=== PATIENT | male | born 1965 | race Two or more races ===

== ENCOUNTER 2025-05-28 16:27 | Inpatient (IN) | payer MEDICAID, SELFPAY ==
[2025-05-28 16:28] VITALS: BMI 29.2
[2025-05-28 16:35] VITALS: BP 109/69; PULSE 88; RESP 20; TEMP 36.5; O2SAT 97
--- NOTE | 2025-05-28 16:46 | EDRME_ITS ---
Rapid Medical Screening Exam FORMERLY [facility], [facility] Arrival date/time: 05/28/25 16:27 59-year-old male with a history of hypertension presents to the emergency room with a chief complaint of generalized cramping to his upper extremities and lower extremities. Patient states it was his first day back at work today and it was very hot outside. I have greeted and performed a focused initial assessment of this patient. A comprehensive ED assessment and evaluation of the patient, analysis of all test results, and completion of the medical decision making process will be conducted by additional ED providers. Chief Complaint: General Adult/Misc Complain Vital signs: Vital Signs Temperature 97.7 F 05/28/25 16:35 Pulse Rate 88 05/28/25 16:35 Respiratory Rate 20 05/28/25 16:35 Blood Pressure 109/69 05/28/25 16:35 Pulse Oximetry (%) 97 05/28/25 16:35 Oxygen Delivery Method Room Air 05/28/25 16:35 Vital signs reviewed by provider: Yes
[2025-05-28 16:56] LABS: Basophils # (Auto) 0.0 Thou/mm3 (0.0-0.2); Basophils % (Auto) 0 % (0-2.5); Eosinophils # (Auto) 0.0 Thou/mm3 (0.0-0.5); Eosinophils % (Auto) 0 % (0-10); Hematocrit 49.9 % (41.0-53.0); Hemoglobin 17.5 g/dL (13.5-16.0); Immature Granulocytes Auto 0.04 Thou/mm3 (0.00-0.00); Lymphocytes # (Auto) 0.8 Thou/mm3 (1.0-4.8); Lymphocytes % (Auto) 6 % (10-50); Mean Corpuscular HGB Conc 35.1 g/dl (31.0-37.0); Mean Corpuscular Hemoglobin 31.6 pg (25.0-35.0); Mean Corpuscular Volume 90 fL (80-100); Monocytes # (Auto) 0.4 Thou/mm3 (0.0-0.8); Monocytes % (Auto) 3 % (0-12); Neutrophils # (Auto) 11.8 Thou/mm3 (1.8-7.7); Neutrophils % (Auto) 90 % (37-80); Nucleated Red Blood Cell # 0.00 Thou/mm3 (0.00-0.00); Nucleated Red Blood Cell % 0 /100 WBC (0); Platelet Count 262 Thou/mm3 (140-440); RDW Standard Deviation 41.4 fL (35.1-43.9); Red Blood Count 5.54 Miln/mm3 (4.50-5.90); White Blood Count 13.1 Thou/mm3 (3.8-10.6)
[2025-05-28 17:07] LABS: Collection Type, Urine Clean Catch
[2025-05-28 17:12] LABS: Bilirubin,Urine Negative (Negative); Blood,Urine Negative (Negative); Color,Urine Yellow (Lt Yel-Yel); Culture Indicated,Urine Not Indicated; Glucose, Urine Negative (Negative); Ketones,Urine Negative (Negative); Leukocyte Esterase,Urine Negative (Negative); Nitrite,Urine Negative (Negative); PH,Urine 5.5 (5.0-7.0); Protein,Urine Trace (Neg - Trace); RBC,Urine 1 /hpf (0-3); Specific Gravity,Urine 1.029 (1.001-1.035); Squamous Epithelial Cell,Urine < 1 /hpf (0-5); Urobilinogen,Urine Negative mg/dL (0.0-1.0); WBC,Urine 3 /hpf (0-5)
[2025-05-28 17:13] LABS: Clarity,Urine Hazy (Clear/Hazy)
[2025-05-28 17:16] LABS: Alanine Aminotransferase 41 U/L (10-49); Albumin, Serum 5.3 gm/dL (3.4-4.8); Albumin/Globulin Ratio 1.8 (1.2-2.2); Alkaline Phosphatase 96 U/L (46-116); Anion Gap 14 (7-16); Aspartate Amino Transferase 34 U/L (0-34); BUN/Creatinine Ratio 8 Ratio (12-20); Bilirubin,Total 2.2 mg/dL (0.3-1.2); Blood Urea Nitrogen 27 mg/dL (9-23); Calcium 10.2 mg/dL (8.3-10.6); Calcium (Corrected) 10.2 mg/dL (8.5-10.1); Carbon Dioxide 22.1 mMol/L (20.0-31.0); Chloride 99 mMol/L (98-107); Creatine Kinase 290 U/L (34-171); Creatinine (Component) 3.2 mg/dL (0.6-1.3); Estimated Creatinine Clearance 23.0 mL/min (>60); Globulin 2.9 gm/dL (2.3-3.5); Glucose 173 mg/dL (74-106); Osmolality,Calculated 279 (275-295); Potassium 4.3 mMol/L (3.4-5.1); Sodium 135 mMol/L (136-145); Total Protein 8.2 gm/dL (5.7-8.2); eGFR 21 See Note
--- NOTE | 2025-05-28 18:10 | XR_ITS ---
Examination: CT abdomen and pelvis without contrast. Coronal 3-D reconstructions. Sagittal 2-D reconstructions. Date and time of exam:May 28, 2025, 1831 hours INDICATIONS: Bilateral flank pain today, acute renal insufficiency on laboratory examination today CTDI: vol (mGy): 7.03 DLP: (mGycm): 410 Technique: Axial images of the abdomen have been obtained, 3 mm slice thickness Intravenous contrast material has not been administered. Low dose protocols were performed. One or more of the following dose reduction techniques were used; automated exposure control, adjustment of the mA and/or KV according to patient size, use of iterative reconstruction technique. Findings: No focal liver or splenic lesions No gallstones No pancreatic or adrenal mass. No renal or ureteral calculi, no hydronephrosis No perinephric stranding Aorta normal size No bowel obstruction Normal appendix No diverticulitis Transverse prostate dimension 4.8 cm Contracted urinary bladder Mild osteopenia IMPRESSION: No renal or ureteral calculi, no hydronephrosis No perinephric stranding. Normal appendix. No bowel obstruction or diverticulitis
[2025-05-28 20:01] VITALS: BP 97/65; PULSE 69; RESP 19; TEMP 36.5; O2SAT 98
--- NOTE | 2025-05-28 20:05 | PD.EDADULT ---
ED General RME/HPI General Chief complaint: General Adult/Misc Complain Stated complaint: CRAMPING TO TASHA LEG AND ARMS, Time Seen by Provider: 05/28/25 18:09 Source: patient Arrival date/time: 05/28/25 16:27 RME / HPI RME / HPI narrative: 59-year-old male with a history of hypertension presents to the emergency room with a chief complaint of generalized cramping to his upper extremities and lower extremities. Patient states it was his first day back at work today and it was very hot outside. Patient developed cramping, scattered all over, since 1:00 PM this afternoon. Severity moderate. Patient denies any vomiting denies any dizziness, denies any other complaints. Related Data Home Medications ?Medication ?Instructions ?Recorded ?Confirmed lisinopril 5 mg tablet 5 mg PO QDAY #0 tabs 11/28/14 08/21/18 Previous Rx's ?Medication ?Instructions ?Recorded ibuprofen 800 mg tablet (IBU) 800 mg PO Q8H #20 tabs 08/20/24 Allergies Allergy/AdvReac Type Severity Reaction Status Date / Time No Known Allergies Allergy Verified 05/28/25 16:31 Review of Systems Review of Systems Narrative Review of Systems: Review of system reviewed and within normal limits except mentioned in HPI ED Exam Narrative Physical exam: VITAL SIGNS: Reviewed. GENERAL APPEARANCE: Alert and interactive, follows commands, no acute distress, HEAD AND FACE: Non-traumatic. ENT: PERRL, pink conjunctivitis, eyelid no trauma, Mucous membrane moist. NECK: Supple, nontender, no nuchal rigidity. CHEST: No tenderness, no crepitus, no paradoxical movement, no retractions. LUNGS: Clear, well ventilated, symmetric, no rales, no wheezing, no ronchi, no stridor, good breath sounds bilaterally. HEART: Regular rate, regular rhythm, no murmur, no gallops. ABDOMEN: Soft, positive bowel sounds, nondistended, no guarding, nontender, no rebound, no masses, RECTAL: Deferred. GENITAL: Deferred. NEUROLOGICAL: Gross motor function intact sensory function intact, Appropriate for age. MUSCULOSKELETAL: low back nontender, full range of motion. EXTREMITIES: Nontender, full range of motion. SKIN: Color pink, dry, no rash, no lacerations, no abrasions, no contusions. LYMPHATICS: Deferred. Course Quality Measures none Orders Category Date Time Status COVID-19 Screening Questionnaire NOW Care 05/28/25 20:15 Active Decision to Admit X1 Care 05/28/25 20:15 Active Consult to Nephrology Stat Cons 05/28/25 20:[address] abdomen pelvis wo con Stat Exams 05/28/25 18:10 Completed CBC Stat Lab 05/28/25 16:52 Completed CK [Creatine Kinase] Stat Lab 05/28/25 16:52 Completed CMP [Comprehensive Metabolic Panel] Stat Lab 05/28/25 16:52 Completed Magnesium Stat Lab 05/28/25 16:52 Completed UA, C/S IF [Urinalysis, C/S if Indicated] Stat Lab 05/28/25 16:50 Completed Sodium Chloride 0.9% 1000 ml [Ns] 1,000 ml Med 05/28/25 18:10 Discontinued IV 999 mls/hr Sodium Chloride 0.9% 1000 ml [Ns] 1,000 ml Med 05/28/25 20:14 Active IV 999 mls/hr Vital Signs Vital signs: Vital Signs Temperature 97.7 F 05/28/25 16:35 Pulse Rate 88 05/28/25 16:35 Respiratory Rate 20 05/28/25 16:35 Blood Pressure 109/69 05/28/25 16:35 Pulse Oximetry (%) 97 05/28/25 16:35 Oxygen Delivery Method Room Air 05/28/25 16:35 Discharge Plan Plan Patient Disposition: Admit Acute Care w/in Hospital Prescriptions/Referrals Prescriptions/Med Rec: No Action lisinopril 5 MG tablet 5 mg PO QDAY Qty: 0 ibuprofen [IBU] 800 mg tablet 800 mg PO Q8H Qty: 20 0RF Referrals: Gloria Valencia MD [Primary Care Provider] - In 1 week Problem List Clinical Impression: MICHELLE (acute kidney injury) Patient/Caregiver Discharge Instructions Print Language: Maldivian Stand Alone Forms: [facility] Award Info., Patient Portal Info Letter MDM Narrative MDM hospital course: 59-year-old male with a history of hypertension presents to the emergency room with a chief complaint of generalized cramping to his upper extremities and lower extremities. Patient states it was his first day back at work today and it was very hot outside. Patient developed cramping, scattered all over, since 1:00 PM this afternoon. Severity moderate. Patient denies any vomiting denies any dizziness, denies any other complaints. Patient's creatinine today was noted to be elevated 3.2 BUN of 27 sodium 135. Total bili of 2.2. 4 days ago patient's creatinine was noted to be 0.9. I consulted Dr. Brewster, oven unloader, who told me that patient could be having prerenal MICHELLE, patient is to be admitted for further management Discussed with hospitalist, who admitted the patient. Chronic Illness/Social Conditions Add or document further as needed: Hypertension Medication Administration(s) Medication Administration History Sodium Chloride (Ns) 1,000 mls @ 999 mls/hr IV .Q1H1M ONE Stop: 05/28/25 21:14 Discontinued Medications Sodium Chloride (Ns) 1,000 mls @ 999 mls/hr IV .Q1H1M ONE Stop: 05/28/25 19:10 Diagnosis Differential diagnosis: Dehydration, heat exhaustion, MICHELLE Most likely dx, and/or detailed dx discussion: MICHELLE, dehydration Dispositon Disposition: Admit
[2025-05-28 20:12] LABS: Magnesium 2.0 mg/dL (1.6-2.6)
--- NOTE | 2025-05-28 20:41 | ESHP_ITS ---
<Statement entered by Nicholas Chandler MD - 05/28/25 23:29> I have discussed and was present for the essential components of the history, physical examination, diagnosis, and treatment plan with the resident. I agree with the patient's care as documented by the resident and amended herein by me. Nicholas Chandler MD FACP. Documentation for date of: 05/28/25 HPI History of Present Illness Chief complaint: Muscle spasms History of present illness: 59-year-old male with past medical history of hypertension, hyperlipidemia, alcohol use disorder presenting to the ED on 05/28 with episodes of muscle spasms. Patient states that the spasms started sometime around this morning while he was working in the [employer]. Patient states that the spasms are generalized and are anywhere from his back to his chest to his abdomen and lower extremities. Patient has not experienced any sensation like this in the past. He denies using any illicit substances and states that he has not been dehydrated; moreover, he states that he drinks about 4-5 bottles of water a day. Of note, patient drinks 12 cans of beer a day and has been drinking like this for several years. Patient also states that his drinking has increased over the past several months but that if his current condition is from his drinking he is willing to quit. Denies any concerning symptoms such as shortness of breath, chest pain, dizziness or melena/hematochezia or hematemesis. Medical history: As stated above Surgical history: Right arm surgery Allergies: NKDA Medications: Lisinopril and a statin?, pending med rec Family history: Noncontributory Social history: Patient lives in [place], works in the [employer], drinks excessive alcohol as stated above no tobacco or illicit drug use ROS: All 12 systems assessed and the patient denies unless otherwise stated in HPI In the ED, patient presented normotensive with regular heart rate, regular respiratory rate, afebrile satting 97 on room air. Pertinent lab findings included WBC of 13.1, hemoglobin 17.5, sodium 135, BUN 27, creatinine 3.2, EGFR of 21, magnesium of 2, corrected calcium of 10.2. Urinalysis did not show any signs of infection. Urine drug screen and urine electrolytes are pending. CT abdomen pelvis showed no significant findings at this time other than transverse prostate dimension of 4.8 cm, contracted urinary bladder and mild osteopenia Patient will be admitted for acute renal failure likely secondary to dehydration versus intrarenal pathology with nephrology consultation and urine studies. Exam Vital Signs Temp Pulse Resp BP Pulse Ox O2 Del Method 97.7 F 69 19 97/65 98 Room Air 05/28/25 20:01 05/28/25 20:01 05/28/25 20:01 05/28/25 20:01 05/28/25 20:01 05/28/25 20:01 Narrative Exam Physical Exam: GENERAL: Awake, answering questions appropriately in Arabic, appears stated age HEENT: NC/AT. Moist mucosa. PERRLA/EOMI. CARDIO: Heart RRR, no obvious murmurs, no JVD. PULM: No coughing or visible SOB. Lungs CTA B/L. GI: Abdomen soft, mildly tender in the right upper quadrant but otherwise nontender without guarding or rebound tenderness. Borborygmi apparent SKIN/MSK/EXT: No wounds/discoloration/rashes/edema/amputations noted. +Pedal pulses present B/L. NEURO: Oriented x3, Moves extremities x4, muscle strength 5 out of 5 on bilateral upper and lower extremities, no focal neurologic deficits noted. Results: Labs 05/28/25 16:52 05/28/25 16:52 Labs: Short CBC 05/28/25 Range/Units 16:52 WBC 13.1 H (3.8-10.6) Thou/mm3 Hgb 17.5 H (13.5-16.0) g/dL Hct 49.9 (41.0-53.0) % Plt Count 262 (140-440) Thou/mm3 BMP 05/28/25 16:52 Sodium 135 L Potassium 4.3 Chloride 99 Carbon Dioxide 22.1 BUN 27 H Creatinine 3.2 H Glucose 173 H Calcium 10.2 Cardiac Enzymes 05/28/25 Range/Units 16:52 Total Creatine Kinase 290 H (34-171) U/L Liver Function 05/28/25 Range/Units 16:52 Total Bilirubin 2.2 H (0.3-1.2) mg/dL AST 34 (0-34) U/L ALT 41 (10-49) U/L Alkaline Phosphatase 96 (46-116) U/L Albumin 5.3 H (3.4-4.8) gm/dL Urine 05/28/25 Range/Units 16:50 Urine Color Yellow (Lt Yel-Yel) Urine Clarity Hazy (Clear/Hazy) Urine pH 5.5 (5.0-7.0) Ur Specific [place] 1.029 (1.001-1.035) Urine Protein Trace (Neg - Trace) Urine Glucose (UA) Negative (Negative) Quality Measures Quality Measures none Medications Home Medications and Allergies Home Medications ?Medication ?Instructions ?Recorded ?Confirmed ?Type lisinopril 5 mg tablet 5 mg PO QDAY #0 tabs 5 08/21/18 History Allergies Allergy/AdvReac Type Severity Reaction Status Date / Time No Known Allergies Allergy Verified 05/28/25 16:31 Visit Medications Sodium Chloride (Ns) 1,000 mls @ 999 mls/hr IV .Q1H1M ONE Stop: 05/28/25 21:14 Discontinued Medications Sodium Chloride (Ns) 1,000 mls @ 999 mls/hr IV .Q1H1M ONE Stop: 05/28/25 19:10 Assessment & Plan Plan 59-year-old male with past medical history of hypertension, hyperlipidemia, alcohol use disorder presenting to the ED on 05/28 with episodes of muscle spasms will be admitted for acute renal failure likely secondary to dehydration versus intrarenal pathology with nephrology consultation and urine studies. #Acute renal failure #Erythrocytosis #Leukocytosis Prerenal azotemia versus intrarenal pathology, possibly obstructive post renal Erythrocytosis and leukocytosis likely secondary to dehydration, hemoconcentration? Baseline creatinine between 1.1-1.2, currently creatinine 3.2 BUN/Cr ratio of 8; more likely to be intrarenal or postrenal Patient also has history of hypertension which could be attributing to hypertensive nephropathy, no history of diabetes No emergent need for dialysis at this time, not hypertensive/volume overloaded, electrolytes within normal limits, minor gap acidosis, no uremia or toxins Plan: IV fluid resuscitation along with maintenance fluids Nephrology consulted, appreciate recommendations Follow-up on urine studies Avoidance of nephrotoxic agents Renally dose medications Follow-up with morning labs Follow-up on morning A1c to rule out diabetic nephropathy #Muscle spasms secondary to #Hypercalcemia #Alcohol use disorder Patient states that he was working in the [employer] when he started developing some muscle spasms Plan: Follow-up on PTH Follow-up on urine drug screen [facility] protocol B12 and folate levels Folic acid and thiamine supplementation IV fluid resuscitation as above #Hypertension Patient on home lisinopril Currently normotensive Plan: Restart home medications when appropriate #Hyperbilirubinemia Patient has a bilirubin of 2.2 with a right upper quadrant tenderness, no fever or jaundice CT did not show any concerning liver or gallbladder findings Plan: Continue to monitor for any acute changes Health Maintenance: Lines: PIV Diet: Renal Bowel: Senna as needed GI prophylaxis: Not needed DVT prophylaxis: SCD Dispo: Nephrology consultation for acute renal failure, hypercalcemia Code: Full Patient seen and assessed with attending Dr. Ramesh Barone, DO PGY-2 Internal Medicine - [facility]
[2025-05-28 20:51] VITALS: BMI 29.0
[2025-05-28] MEDS: SODIUM CHLORIDE 0.9% 1000 ML 1,000 ML 999 ML IV ×2 (20:57)
[2025-05-28] MEDS: SODIUM CHLORIDE 0.9% 1000 ML 1,000 ML 80 ML IV (20:58)
[2025-05-28 21:30] LABS: Amphetamine/Methamp Scrn,U Negative (Negative); Barbiturate Screen,Urine Negative (Negative); Benzodiazepines Screen,Urine Negative (Negative); Benzoylecgonine Screen, Ur Negative (Negative); Chloride,Urine Random 59.1 mMol/L (55.0-125.0); Creatinine MALB Rnd Ur > 245 mg/dL (30-125); Creatinine,Random Urine > 245 mg/dL (30-125); Fentanyl Screen,Urine Negative (Negative); Microalbumin Creat Ratio 21 mg/gCrea (<30); Microalbumin, Random Urine 52 mg/L (0-300); Opiate Screen,Urine Negative (Negative); Potassium,Urine Random 50 mMol/L (12-62); Sodium,Urine Random 24.8 mMol/L (20.0-110.0); THC Screen,Urine Negative (Negative)
[2025-05-28 22:27] VITALS: BP 109/66; PULSE 65; RESP 18; TEMP 36.3; O2SAT 100; BMI 28.1
[2025-05-28 23:04] VITALS: PULSE 60
--- NOTE | 2025-05-28 23:04 | PC.NURSE ---
Pt said he's taking cholesterol medication but cant remember the name of it, I asked if family member can bring it tomorrow he said it was on his car and nobody can access his car.
[2025-05-29] VITALS: BP 98/56; PULSE 55; PULSE 64; RESP 17; TEMP 36.1; O2SAT 99
[2025-05-29 04:00] VITALS: BP 106/62; PULSE 52; PULSE 65; RESP 17; TEMP 36.2; O2SAT 96
[2025-05-29 06:10] LABS: Basophils # (Auto) 0.0 Thou/mm3 (0.0-0.2); Basophils % (Auto) 0 % (0-2.5); Eosinophils # (Auto) 0.1 Thou/mm3 (0.0-0.5); Eosinophils % (Auto) 1 % (0-10); Hematocrit 42.7 % (41.0-53.0); Hemoglobin 14.9 g/dL (13.5-16.0); Immature Granulocytes Auto 0.02 Thou/mm3 (0.00-0.00); Lymphocytes # (Auto) 1.4 Thou/mm3 (1.0-4.8); Lymphocytes % (Auto) 20 % (10-50); Mean Corpuscular HGB Conc 34.9 g/dl (31.0-37.0); Mean Corpuscular Hemoglobin 32.1 pg (25.0-35.0); Mean Corpuscular Volume 92 fL (80-100); Monocytes # (Auto) 0.9 Thou/mm3 (0.0-0.8); Monocytes % (Auto) 12 % (0-12); Neutrophils # (Auto) 4.6 Thou/mm3 (1.8-7.7); Neutrophils % (Auto) 67 % (37-80); Nucleated Red Blood Cell # 0.00 Thou/mm3 (0.00-0.00); Nucleated Red Blood Cell % 0 /100 WBC (0); Platelet Count 200 Thou/mm3 (140-440); RDW Standard Deviation 43.2 fL (35.1-43.9); Red Blood Count 4.64 Miln/mm3 (4.50-5.90); White Blood Count 6.9 Thou/mm3 (3.8-10.6)
[2025-05-29 06:11] LABS: Parathyroid Hormone Intact 85.5 pg/ml (18.5-88.0)
[2025-05-29 06:15] LABS: Folate 22.91 ng/mL (>5.38); Vitamin B12 447 pg/mL (211-911)
[2025-05-29 06:16] LABS: Alanine Aminotransferase 29 U/L (10-49); Albumin, Serum 3.9 gm/dL (3.4-4.8); Albumin/Globulin Ratio 1.9 (1.2-2.2); Alkaline Phosphatase 68 U/L (46-116); Anion Gap 8 (7-16); Aspartate Amino Transferase 32 U/L (0-34); BUN/Creatinine Ratio 14 Ratio (12-20); Bilirubin,Total 2.1 mg/dL (0.3-1.2); Blood Urea Nitrogen 23 mg/dL (9-23); Calcium 8.4 mg/dL (8.3-10.6); Calcium (Corrected) 8.5 mg/dL (8.5-10.1); Carbon Dioxide 23.8 mMol/L (20.0-31.0); Cardiac Risk Estimate 2.5 RATIO (4.0-6.7); Chloride 107 mMol/L (98-107); Cholesterol 141 mg/dL (132-200); Creatinine (Component) 1.7 mg/dL (0.6-1.3); Estimated Creatinine Clearance 42.8 mL/min (>60); Globulin 2.1 gm/dL (2.3-3.5); Glucose 95 mg/dL (74-106); HDL Cholesterol 57 mg/dL (40-60); LDL Cholesterol,Calculated 73 mg/dL (0-130); Magnesium 2.0 mg/dL (1.6-2.6); Osmolality,Calculated 281 (275-295); Phosphorous 4.1 mg/dL (2.4-5.1); Potassium 4.1 mMol/L (3.4-5.1); Sodium 139 mMol/L (136-145); Total Protein 6.0 gm/dL (5.7-8.2); Triglycerides 54 mg/dL (30-150); eGFR 46 See Note
[2025-05-29 06:36] LABS: Glucose Estimated Average 111 mg/dL (80-131); Hemoglobin A1C 5.5 % Hgb (4.8-6.0)
[2025-05-29 08:00] VITALS: BP 122/70; PULSE 55; PULSE 56; RESP 15; TEMP 36.2; O2SAT 99
[2025-05-29] MEDS: FOLIC ACID 1 MG TABLET PO (09:46)
[2025-05-29] MEDS: THIAMINE 100 MG TABLET PO (09:46)
[2025-05-29] MEDS: RINGERS LACTATED 1000 ML 1,000 ML 75 ML IV (09:46)
--- NOTE | 2025-05-29 09:54 | PD.RESCONSUL ---
HPI Data of Consult Consult date: 05/29/25 Requesting Physician: Nicholas Chandler MD Admitting Provider: Nicholas Chandler MD Attending Provider: Nicholas Chandler MD Primary Care Provider: Gloria Valencia MD Consult Narrative Reason for consult: IMCHELLE History of present illness: Isidra Knight is a 59-year-old male with past medical history of hypertension, alcohol use disorder presenting to the ED on 05/28 with episodes of muscle spasms. 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 Patient states that the spasms are generalized and are anywhere from his back to his chest to his abdomen and lower extremities. Patient has not experienced any sensation like this in the past. He denies using any illicit substances and states that he has not been dehydrated; moreover, he states that he drinks about 4-5 bottles of water a day. Of note, patient drinks 12 cans of beer a day and has been drinking like this for several years. Patient also states that his drinking has increased over the past several months but that if his current condition is from his drinking he is willing to quit. Denies any concerning symptoms such as shortness of breath, chest pain, dizziness or melena/hematochezia or hematemesis. This morning when meeting the patient, check pilot was called. Patient was laying in bed relaxed, in no acute distress. Patient states that he is feeling a lot better, states he is hardly having any muscle spasms any more. Patient denies having any history of kidney disease or history of any other disease that he is aware of. States no known kidney disease in relatives or family members. States that his only complaint is some mild R abdominal pain when pushing down hard. Patient endorses making urine and not having any trouble going to the bathroom. Patient denies headache, fever, chest pain, shortness of breath, flank/back pain, dysuria, hematuria. Nephrology consulted for management of MICHELLE. Medical history: Above Surgical history: Right arm surgery Allergies: NKDA Medications: Lisinopril Family history: Mother had diabetes Social history: Patient lives in [place], works in the shook, drinks excessive alcohol as stated above no tobacco or illicit drug use ED Course: Vitals: normotensive with regular heart rate, regular respiratory rate, afebrile satting 97 on room air. Pertinent labs: WBC of 13.1, hemoglobin 17.5, sodium 135, BUN 27, creatinine 3.2, EGFR of 21, magnesium of 2, corrected calcium of 10.2. Urinalysis did not show any signs of infection. Urine drug screen and urine electrolytes are pending. Imaging: CT abdomen pelvis showed no significant findings at this time other than transverse prostate dimension of 4.8 cm, contracted urinary bladder and mild osteopenia Patient admitted for MICHELLE likely secondary to dehydration. cc:: cc: Nicholas Chandler MD Review of Systems Review of Systems Narrative Review of Systems: CONSTITUTIONAL: Patient denies any fever, chills. HEENT: Denies any visual disturbances or hearing problems. CARDIOVASCULAR: Patient denies any chest pain, shortness of breath, swelling in the lower extremities. PULMONARY: Patient denies any shortness of breath, cough. GASTROINTESTINAL: Patient denies any abdominal pain, constipation, nausea, vomiting, diarrhea. GENITOURINARY: Patient denies any urinary symptoms of burning or frequency or hematuria, denies any form in the urine. SKIN: Denies any rash. MUSCULOSKELETAL: Denies any muscular skeletal problems of joint pains. NEUROLOGICAL: Denies any neurological problems of strokes, seizures or confusion. Denies any memory problems. PSYCHIATRIC: Denies any depression or anxiety. LYMPHATICS : No lymphadenopathy Constitutional Comments: General: Denies fevers or chills HEENT: Denies congestion or sore throat Heart: Denies chest pain or palpitations Lungs: Denies shortness of breath or cough Abdomen: Endorses R sided abdominal pain on deep palpation. Denies diarrhea, nausea, vomiting, constipation, bright red blood per rectum or melena Genitourinary: Denies frequency, urgency, dysuria, or hematuria Musculoskeletal: Denies joint pain or myalgias Neurology: Denies any changes in vision, weakness or difficulty speaking Past Medical History Past Medical History NEUROLOGIC: Negative Seizures CARDIAC: Positive Hypercholesterolemia and Hypertension; Negative Congestive Heart Failure RESPIRATORY: Negative Chronic Obstructive Pulmonary Disease (COPD) GENITOURINARY: Negative Renal Disease ENDOCRINE: Negative Diabetes Mellitus Type 1 or Diabetes Mellitus Type 2 OTHER HISTORY: Negative Blood Transfusions, Blood Transfusion Reaction or Anesthesia Reactions Social History SMOKING STATUS: Never smoker Exam Vital Signs Temp Pulse Resp BP Pulse Ox O2 Del Method 97.1 F 56 L 15 122/70 99 Room Air 05/29/25 08:00 05/29/25 08:00 05/29/25 08:00 05/29/25 08:00 05/29/25 08:00 05/29/25 08:00 Narrative Exam General: No acute distress; A&Ox3 Skin: Warm, dry, intact, no obvious rash. Head: Normocephalic, atraumatic. Eye: Normal conjunctiva, PERRL. Cardiovascular: Regular rate and rhythm, no murmur, +S1/S2. Respiratory: Lungs CTAB GI: Soft, nontender, non-distended. No guarding or rebound tenderness. Extremities: no edema, no cyanosis, no clubbing. Extremity pulses present Neuro: No focal deficits observed. Conversant, moving all extremities. No overt cerebellar signs/incoordination. Psychiatric: Cooperative, appropriate affect. Results Labs 05/29/25 04:16 05/29/25 10:35 Labs: Short CBC 05/28/25 05/29/25 Range/Units 16:52 04:16 WBC 13.1 H 6.9 D (3.8-10.6) Thou/mm3 Hgb 17.5 H 14.9 D (13.5-16.0) g/dL Hct 49.9 42.7 (41.0-53.0) % Plt Count 262 200 D (140-440) Thou/mm3 BMP 05/28/25 05/29/25 16:52 04:16 Sodium 135 L 139 Potassium 4.3 4.1 Chloride 99 107 Carbon Dioxide 22.1 23.8 BUN 27 H 23 Creatinine 3.2 H 1.7 H D Glucose 173 H 95 D Calcium 10.2 8.4 D Cardiac Enzymes 05/28/25 Range/Units 16:52 Total Creatine Kinase 290 H (34-171) U/L Liver Function 05/28/25 05/29/25 Range/Units 16:52 04:16 Total Bilirubin 2.2 H 2.1 H (0.3-1.2) mg/dL AST 34 32 (0-34) U/L ALT 41 29 (10-49) U/L Alkaline Phosphatase 96 68 D (46-116) U/L Albumin 5.3 H 3.9 D (3.4-4.8) gm/dL Urine 05/28/25 Range/Units 16:50 Urine Color Yellow (Lt Yel-Yel) Urine Clarity Hazy (Clear/Hazy) Urine pH 5.5 (5.0-7.0) Ur Specific Bunn 1.029 (1.001-1.035) Urine Protein Trace (Neg - Trace) Urine Glucose (UA) Negative (Negative) Quality Measures Quality Measures VTE prophylaxis Medications Home Medications and Allergies Home Medications ?Medication ?Instructions ?Recorded ?Confirmed ?Type lisinopril 5 mg tablet 5 mg PO QDAY #0 tabs 11/28/14 05/28/25 History Held on 05/29/25. Instructions: Resume on 06/05/25. Hold for a week until you see your PCP Allergies Allergy/AdvReac Type Severity Reaction Status Date / Time No Known Allergies Allergy Verified 05/28/25 16:31 Visit Medications Acetaminophen (Acetaminophen 325 Mg Tablet) 650 mg PO Q6H PRN PRN Reason: PAIN SCALE 1-3 (mild Stop: 06/27/25 20:38 Chlordiazepoxide HCl (Chlordiazepoxide Hcl 25 Mg Capsule) 50 mg PO Q6HR PRN PRN Reason: CIWA> 9 Stop: 05/31/25 20:46 Folic Acid (Folic Acid 1 Mg Tablet) 1 mg PO QDAY CUATE Stop: 06/28/25 08:59 Last Admin: 05/29/25 09:46 Dose: 1 mg Lactated Ringer's (Lactated Ringers) 1,000 mls @ 75 mls/hr IV .[id number] ONE Stop: 05/29/25 22:31 Last Admin: 05/29/25 09:46 Dose: 75 mls/hr Lorazepam (Lorazepam 0.5 Mg Tablet) 0.5 mg PO Q4HR PRN PRN Reason: CIWA Score 2-6 Stop: 06/02/25 20:45 Lorazepam (Lorazepam 0.5 Mg Tablet) 1 mg PO Q4HR PRN PRN Reason: CIWA SCORE 7-11 Stop: 06/02/25 20:45 Lorazepam (Lorazepam 0.5 Mg Tablet) 2 mg PO Q4HR PRN PRN Reason: CIWA SCORE 12-15 Stop: 06/02/25 20:45 Ondansetron HCl (Ondansetron Inj 2 Mg/Ml Inj 2 Ml) 4 mg IVP Q6H PRN; Protocol PRN Reason: NAUSEA OR VOMITING Stop: 06/27/25 20:38 Sennosides (Senna Tablet) 1 tab PO QDAY PRN; Protocol PRN Reason: constipation Stop: 06/27/25 20:38 Thiamine HCl (Thiamine 100 Mg Tablet) 100 mg PO QDAY CUATE Stop: 06/28/25 08:59 Last Admin: 05/29/25 09:46 Dose: 100 mg Discontinued Medications Sodium Chloride (Ns) 1,000 mls @ 999 mls/hr IV .Q1H1M ONE Stop: 05/28/25 19:10 Last Admin: 05/28/25 20:57 Dose: 999 mls/hr Sodium Chloride (Ns) 1,000 mls @ 999 mls/hr IV .Q1H1M ONE Stop: 05/28/25 21:14 Last Admin: 05/28/25 20:57 Dose: 999 mls/hr Sodium Chloride (Ns) 1,000 mls @ 80 mls/hr IV .[id number] ONE Stop: 05/29/25 09:12 Last Admin: 05/28/25 20:58 Dose: 80 mls/hr Assessment & Plan Plan 59-year-old male with past medical history of hypertension, alcohol use disorder presenting to the ED on 05/28 with episodes of muscle spasms. Admitted along with nephrology consulted for management of MICHELLE. #MICHELLE #Erythrocytosis, improved #Leukocytosis, improved Likely pre-renal due to dehydration given hx of working in heat along with improvement of Kidney function to IV fluids and patient's improved clinical status. Supporting this is the normalization of hgb and wbc levels, with previous suspicion for it being due to hemo-concentration likely. Less likely obstructive post renal although with Transverse prostate dimension 4.[address]-AP. Admission: WBC of 13.1, hemoglobin 17.5, sodium 135, BUN 27, creatinine 3.2 (baseline ~1.1), EGFR of 21. 7/: wbc 6.9, hgb 14.9, Na 139, K 4.1, BUN 23, Cr 1.7. Urinalysis significant for random Cr >245; along with hx HTN, may have contributed to MICHELLE. Urine electrolytes normal. A1C 5.5. Plan: -Continue maintenance fluids 1/2 NS at 120 cc/hr with Cr goal of 1.5 or less. -Avoidance of nephrotoxic agents -Renally dose medications -Monitor cbc, cmp #Hypertension Patient on home lisinopril -hold lisinopril while kidney function improves #Muscle spasms secondary to #Hypercalcemia #Alcohol use disorder #Hyperbilirubinemia above managed per primary team Thank you for allowing us to take part in the care of Mr. Knight Patient plan of care was discussed with the attending physician, Dr. Ney Rosenbaum MD PGY-1 Attending Provider Attestation/Addendum Patient seen and examined with resident physician Dr. Chance. Note reviewed, agree with findings and recommendations with the changes made. Patient presented with MICHELLE. Most likely prerenal azotemia. Patient has been working outside for quite some time. With IV fluids his creatinine markedly improved to 1.2. Patient can be discharged from renal standpoint.
--- NOTE | 2025-05-29 10:58 | PC.SS ---
Patient Haris Knight is a 59 Year old male admitted for Acute Renal Failure. SS met with patient at bedside to discuss discharge plan. Patient reports he lives alone. Surrogate decision maker is his son, Haris Knight [phone]. Patient reports he is able to complete all ADL's independently and does not utilize any source of DME to assist with ambulation. Choice of pharmacy is [facility]. PCP is Gloria Valencia at [facility]. At time of discharge patient will return back home, patient reports family will provide transportation. Next of kin: Son, Haris Knight Discharge Plan: Home
[2025-05-29 11:18] LABS: Albumin, Serum 3.8 gm/dL (3.4-4.8); Anion Gap 6 (7-16); BUN/Creatinine Ratio 18 Ratio (12-20); Blood Urea Nitrogen 22 mg/dL (9-23); Calcium 8.4 mg/dL (8.3-10.6); Calcium (Corrected) 8.6 mg/dL (8.5-10.1); Carbon Dioxide 23.9 mMol/L (20.0-31.0); Chloride 109 mMol/L (98-107); Creatinine (Component) 1.2 mg/dL (0.6-1.3); Estimated Creatinine Clearance 60.6 mL/min (>60); Glucose 87 mg/dL (74-106); Osmolality,Calculated 279 (275-295); Phosphorous 2.2 mg/dL (2.4-5.1); Potassium 3.8 mMol/L (3.4-5.1); Sodium 139 mMol/L (136-145); eGFR > 60 See Note
[2025-05-29 12:00] VITALS: BP 114/72; PULSE 52; RESP 13; TEMP 36.2; O2SAT 99
--- NOTE | 2025-05-29 12:55 | ESDS_ITS ---
<Statement entered by Shanika Schulte MD - 05/31/25 12:40> I reviewed above note and agree with findings and plans. I have also personally examined the patient with medicine team and went over assessment and plan with medical team including international account executive and resident physician. <Statement entered by Alon Anderson MD - 05/29/25 17:19> I discussed and supervised with the international account executive physician who took care of this patient. I personally saw and examined the patient. I agree with most of the assessment and plan. Disclaimer: Despite multiple revisions, due to the dictation software being used, the document bellow may not be free of grammatical errors including phonetic/typographic errors. However, this does not deter from our commitment to providing health care in the patient's best interest in mind. Plan of care discussed with attending Physician Dr. Franca Anderson MD PGY-3 Planned Discharge Date 05/29/25 DS: Providers Provider Date of admission: 05/28/25 20:39 Primary care physician: Gloria Valencia MD Admitting Provider: Nicholas Chandler MD Attending Provider on Admission: Nicholas Chandler MD Consults: 05/28/25 20:14 Consult to Nephrology Stat Comment: MICHELLE Consulting Provider: Scar Brewster Attending Provider on DC: Shanika Schulte MD Discharging Provider: Matheus Wade DO Anticipated date of discharge: 05/29/25 DS: Diagnosis Problem List Completed Was Problem List Reviewed/Reconciled?: Yes Hospital Course Hospital Course Hospital course: Mr. Knight is a 59M with hx of hypertension, hyperlipidemia, and alcohol use disorder admitted for prerenal MICHELLE. 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 He reported that he had not been dehydrated and usually drink 5-6 bottles of water everyday at work. He also reported that he usually drink 3- 4 cans of beer everyday after work. In the ED, pt was normotensive with regular heart rate, regular respiratory, afebrile, and satutated well on RA. Pertinent lab findings included WBC of 13.1, hemoglobin 17.5, sodium 135, BUN 27, creati nine 3.2, EGFR of 21, magnesium of 2, corrected calcium of 10.2. UA significant for elevated random Creatinine > 245. UDS Negative. CT abd on 05/28 unremarkable. Pt was given 3L of NaCl 0.9% overnight with an additional 1L of LR on 05/29. Pt's Cr level was 1.2 prior to discharge. Pt is medically and physically stable for discharge. Diagnosis #Acute kidney injury secondary to dehydration #Muscle spasms #Alcohol use disorder #Hypertension #Hyperbilirubinemia Discharge Plan: Take all home meds as prescribed We held your lisinopril due to acute kidney injury for a week please follow up with your Primary Care Provider Follow up with your Primary Care Provider as outpatient In case of emergency call or come back to the ED Case discussed with my senior resident Dr. Anderson Case discussed with my attending Dr. Franca Wade, PGY 1 Time Spent with Patient Time attestation: Total time spent providing and/or coordinating discharge services: Time spent: Greater than 30 minutes Exam Vital Signs Temp Pulse Resp BP Pulse Ox O2 Del Method 97.1 F 52 L 13 114/72 99 Room Air 05/29/25 12:05/29/25 12:05/29/25 12:05/29/25 12:05/29/25 12:05/29/25 12:00 Discharge Plan Plan Patient Disposition: HOME (Self Care) Care Plan Goals: Take all home meds as prescribed We held your lisinopril due to acute kidney injury for a week please follow up with your Primary Care Provider Follow up with your Primary Care Provider as outpatient In case of emergency call or come back to the ED Alex todos los medicamentos en casa Suspendimos mirza tratamiento con lisinopril debido a neri lesion renal aguda broderick neri semana Consulte con mirza medico de cabecera Realice un seguimeinto con mirza proveedor de atencion primaria evelyn paciente ambulatorio En bel de emergencia llame al o regrese al departamento de emergencias Prescriptions/Referrals Prescriptions/Med Rec: New folic acid 1 mg Tablet 1 mg PO QDAY 30 Days Qty: 30 0RF thiamine mononitrate (vit B1) 100 mg Tablet 100 mg PO QDAY Qty: 30 0RF Held lisinopril 5 MG tablet 5 mg PO QDAY Qty: 0 Hold Instructions: Resume on 06/05/25. Hold for a week until you see your PCP Referrals: Gloria Valencia MD [Primary Care Provider] - Patient/Caregiver Discharge Instructions Education Materials: Acute Kidney Failure Dc Print Language: Malaysian Stand Alone Forms: Kendra Award Info., Patient Portal Info Letter Discharge Order Discharge Orders: Discharge (Routine); Ordered 05/29/25 Ordered By: Marcel Brito Quality Discharge Quality Measures none
[2025-05-29 15:35] VITALS: BP 119/75; PULSE 54; RESP 16; TEMP 36.3; O2SAT 99
== END 2025-05-29 15:58 | disposition home or self-care (01) | DRG 469 ==
LOC: SERX 20:15 → SERHOLD 21:29 → S3SX 05-29 05:41
PROVIDERS: Nurse Practitioner Family; Admitting Provider Internal Medicine; Emergency Provider Emergency Medicine; PCP Obstetrics & Gynecology; Visit Provider Internal Medicine
DX: N17.9 Acute kidney failure, unspecified (principal); E86.0 Dehydration; F10.90 Alcohol use, unspecified, uncomplicated; I10 Essential (primary) hypertension; E78.5 Hyperlipidemia, unspecified; D75.1 Secondary polycythemia; D72.829 Elevated white blood cell count, unspecified; E83.52 Hypercalcemia; R17 Unspecified jaundice
CPT/HCPCS: 36415; 74176; 80053; 80061; 80069; 80307; 81001; 82043; 82436; 82550; 82570; 82607; 82746; 83036; 83735; 83970; 84100; 84133; 84300; 85025; 93225; 99284; J7030; J7120; A9270